=== PATIENT | male | born 2000 | race African-American/Black ===

== ENCOUNTER 2019-03-05 09:36 | Emergency (ER) | payer MEDICAID, SELFPAY ==
[2019-03-05 10:15] LABS: Bilirubin Negative (Negative); Blood, Urine Negative (Negative); Clarity Clear (Clear); Glucose, Urine (Dipstick) Normal (Negative); Leukocyte Negative Leu/uL (Negative); Nitrite Negative (Negative); Protein, Urine (Dipstick) Negative (Neg-Trace); Urobilinogen Normal mg/dL (Less than 2)
[2019-03-05] MEDS ORDERED: Ondansetron PF 4 MG/2 ML Vial ONE (10:28)
== END 2019-03-05 12:42 | disposition home or self-care (01) ==
LOC: ERS 09:36
DX: R00.2 Palpitations (principal)
CPT/HCPCS: 81003; 93005; 96361; 96374; J2405

== ENCOUNTER 2020-11-03 23:04 | Emergency (ER) | payer SELFPAY ==
[2020-11-04 12:14] LABS: SARS-CoV-2 PCR by NAA Not Detected (NotDetected)
== END 2020-11-03 23:58 | disposition home or self-care (01) ==
LOC: ERS 23:04
DX: R05 Cough (principal); Z20.822 Contact with and (suspected) exposure to COVID-19
CPT/HCPCS: 71045; 93005; U0003; U0005